=== PATIENT | female | born 1955 | race Caucasian/White ===

== ENCOUNTER 2017-04-22 09:18 | Emergency (ER) | payer MEDICAID ==
[~2017-04-22] VITALS: Wt 68.2 kg
[2017-04-22] MEDS ORDERED: HYDROCODONE/APAP (5/325) TAB ONE (10:42)
--- NOTE | 2017-04-22 13:41 | RADRPT ---
PROCEDURE: XR right Shoulder. CLINICAL INDICATION: Right shoulder pain, fall TECHNIQUE: 3 of the right shoulder are available for review. COMPARISON: None available FINDINGS: There is an acute proximal humerus fracture, likely involving the surgical neck, with the greater tu berosity component of the fracture displaced approximately 8 mm. There is no dislocation of the humeral head. 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 Visualized right lung is clear. IMPRESSION: 1. Acute proximal humerus fracture as above noting approximately 8 mm of displacement of the greater tuberosity fragment. RPTAT: UU .Ilia Palm MD, Date Time Electronically viewed and signed by .Ilia Palm MD, on 04/22/2017 13:40 .K/
--- NOTE | 2017-04-22 13:41 | RADRPT ---
PROCEDURE: XR right humerus CLINICAL INDICATION: Right arm pain, fall TECHNIQUE: 2 images of the right humerus COMPARISON: Radiographs of the right shoulder same day FINDINGS: There is an acute proximal humerus fracture, likely involving the surgical neck, with the greater tu berosity component of the fracture displaced approximately 8 mm. There is no dislocation of the humeral head. 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 Visualized right lung is clear. IMPRESSION: 1. Acute proximal humerus fracture as above noting approximately 8 mm of displacement of the greater tuberosity fragment. RPTAT: UU .Ilia Palm MD, Date Time Electronically viewed and signed by .Ilia Palm MD, on 04/22/2017 13:41 .K/
--- NOTE | 2017-04-22 13:50 | ERD ---
ER Documentation Chief Complaint Date/Time DATE: 04/22/17 TIME: 13:49 Chief Complaint r. shoulder pain s/p trip and fall HPI This is a 61-year-old female who presents to the emergency department today with right arm pain after sustaining a fall earlier this morning. She has not taken medication for the pain. States she has a history of osteoporosis. Denies any fevers or chills or previous trauma in this shoulder. ROS All systems reviewed and are negative except as per history of present illness. Medications Home Meds Active Scripts Acetaminophen* (Tylophen*) 500 Mg Capsule, 1 CAP PO Q6H Y for PAIN AND OR ELEVATED TEMP, #30 CAP Prov:KEVIN CALABRESE PA-C 04/22/17 Naproxen* (Naprosyn*) 500 Mg Tablet, 500 MG PO BID Y for PAIN AND/OR INFLAMMATION, #30 TAB Prov:KEVIN CALABRESE PA-C 04/22/17 Tramadol HCl (Tramadol HCl) 50 Mg Tablet, 50 MG PO Q4 Y for PAIN, #20 TAB Prov:KEVIN CALABRESE PA-C 04/22/17 PMhx/Soc History of Surgery: Yes (, two hernia repairs) Anesthesia Reaction: No Hx Neurological Disorder: No Hx Respiratory Disorders: No Hx Cardiac Disorders: No Hx Psychiatric Problems: No Hx Miscellaneous Medical Probl: Yes (htn) Hx Alcohol Use: No Hx Substance Use: No Hx Tobacco Use: No Smoking Status: Never smoker Physical Exam Vitals Vital Signs Date Time Temp Pulse Resp B/P Pulse Ox O2 Delivery O2 Flow Rate FiO2 04/22/17 09:20 98.0 75 20 183/81 98 Physical Exam Const: NAD Head: Atraumatic Eyes: Normal Conjunctiva ENT: Normal External Ears, Nose and Mouth. Neck: Full range of motion..~ No meningismus. Resp: Clear to auscultation bilaterally Cardio: Regular rate and rhythm, no murmurs Abd: Soft, non tender, non distended. Normal bowel sounds Skin: No petechiae or rashes MSK: Right shoulder with no obvious deformity. No effusion. No ecchymosis. Unable to assess range of motion secondary to pain. Tenderness palpation humerus and AC area full active range of motion at elbow and wrist. Nontender to palpation elbow wrist pulses 2+ per distal neurovascularly intact Neur: Awake and alert Psych: Normal Mood and Affect Results 24 hrs Current Medications Medications (Trade) Dose Ordered Sig/Veronica Route PRN Reason Start Time Stop Time Status Last Admin Dose Admin Acetaminophen/ Hydrocodone Bitart ([place] (5/325)) 1 tab STK-MED ONCE .ROUTE 04/22/17 10:42 04/22/17 10:43 DC Ketorolac Tromethamine (Toradol) 30 mg ONCE STAT IM 04/22/17 14:04 04/22/17 14:06 DC DIAGNOSTIC IMAGING REPORT Patient: DIANE MERCADO : 1955 Age: 61 Sex: F MR #: [id number] DOS: 04/22/17 0000 Ordering MD: KEVIN CALABRESE PA-C Location: [facility] Room/Bed: PROCEDURE: XR right humerus CLINICAL INDICATION: Right arm pain, fall TECHNIQUE: 2 images of the right humerus COMPARISON: Radiographs of the right shoulder same day FINDINGS: There is an acute proximal humerus fracture, likely involving the surgical neck , with the greater tuberosity component of the fracture displaced approximately 8 mm. There is no dislocation of the humeral head. 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 Visualized right lung is clear. IMPRESSION: 1. Acute proximal humerus fracture as above noting approximately 8 mm of displacement of the greater tuberosity fragment. RPTAT: UU .Ilia Palm MD, MD Date Time Electronically viewed and signed by .Ilia Palm MD, MD on 04/22/2017 13: 41 .K/ CC: KEVIN CALABRESE PA-C DIAGNOSTIC IMAGING REPORT Patient: DIANE MERCADO : 1955 Age: 61 Sex: F MR #: [id number] DOS: 04/22/17 0000 Ordering MD: PROUSE, KEVIN M. PA-C Location: [facility] Room/Bed: PROCEDURE: XR right Shoulder. CLINICAL INDICATION: Right shoulder pain, fall TECHNIQUE: 3 of the right shoulder are available for review. COMPARISON: None available FINDINGS: There is an acute proximal humerus fracture, likely involving the surgical neck , with the greater tuberosity component of the fracture displaced approximately 8 mm. There is no dislocation of the humeral head. 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 Visualized right lung is clear. IMPRESSION: 1. Acute proximal humerus fracture as above noting approximately 8 mm of displacement of the greater tuberosity fragment. RPTAT: UU .Ilia Palm MD, MD Date Time Electronically viewed and signed by .Ilia Palm MD, MD on 04/22/2017 13: 40 .K/ CC: KEVIN CALABRESE PA-C Procedures/MDM This a 61-year-old female who presents to the emergency department today complaining of right shoulder pain after a mechanical fall earlier today which she was walking when she tripped. Given that there was trauma and patient had pain and was unable to move her arm I did obtain images Per the radiology report images of the right shoulder and humerus show an acute proximal humerus fracture as the above noting approximately 8 mm of displacement of the greater tuberosity fragment. There is no dislocation of the humeral head. There is mild AC osteoarthrosis. This is likely the source of the patient's pain. Patient was given [place] here in the emergency department. She still continued complaint of pain was therefore given Toradol and pain improved. She was instructed to follow-up with an academic affairs specialist. Patient indicated she does not have a primary care doctor and therefore I gave her information for [facility]. Patient was placed in an immobilizer. She is distal neurovascularly intact pre- and post immobilization. Patient was given a prescription for tramadol, Naprosyn, Tylenol for home At this time the patient is stable for discharge and outpatient management. Patient should follow up with their PCP in the next 1-2 days. They may return to the emergency department sooner for any persistent or worsening of symptoms. Patient understood and agreed with the plan. Discussed the patient with Dr. Troncoso and he is in agreement with the plan Departure Diagnosis: Primary Impression: Humerus fracture Encounter type: initial encounter Humerus Location: proximal Fracture type : closed Fracture morphology: unspecified fracture morphology Laterality: right Qualified Code: S42.201A - Closed fracture of proximal end of right humerus, unspecified fracture morphology, initial encounter Condition: Fair KEVIN CALABRESE PA-C Apr 22, 2017 13:48
[2017-04-22] MEDS ORDERED: NAPR-260 PO (14:01)
[2017-04-22] MEDS ORDERED: TRAM50TA2 PO (14:01)
[2017-04-22] MEDS ORDERED: ACET500C5 PO (14:01)
[2017-04-22] MEDS ORDERED: KETOROLAC 30 MG INJ IM STA (14:04)
[2017-04-22 14:56] VITALS: BP 147/80; PULSE 82; RESP 18; TEMP 98.6
== END 2017-04-22 14:58 | disposition home or self-care (01) ==
LOC: FTE 09:18
DX: S42.201A Unspecified fracture of upper end of right humerus, initial encounter for closed fracture (principal); I10 Essential (primary) hypertension; W01.0XXA Fall on same level from slipping, tripping and stumbling without subsequent striking against object, initial encounter; Y92.9 Unspecified place or not applicable
CPT/HCPCS: 29105; 73030; 73060; 96372; J1885; Z7502; Z7610